=== PATIENT | female | born 1960 | race Caucasian/White ===

== ENCOUNTER → 2017-09-20 | Outpatient (CLI) | payer OTHER ==
[~2017-09-20] VITALS: Ht 152.4 cm; Wt 122.5 kg
[~2017-09-20] MED LIST: ACTOS 30 MG TAB30 MG PO; ACTOS 45 MG45 M1 PO; ADULT LOW DOSE81 MG PO; ASPIRIN325 PO; BACTRIM DS TAB1 EACH PO; BRILINTA90 MG PO; CALCIUM 500 +1 EAC5 PO; CARVEDILOL12.5 MG PO; CRESTOR40 MG PO; FLEXERIL PO; FUROSEMIDE 40 M40 M1 PO; HYDROCODONE-ACE15 ML PO; HYDROCODONE-AP1 EA11 PO; HYDROCODONE-AP1 EA12 PO; HYDROCODONE-APA1 TA1 PO; IMDUR; LANTUS SQ; LASIX 80 MG TAB80 MG PO; LISINOPRIL10 MG PO; MEDROLDOSEPACK PO; MS CONTIN15 MG PO; MULTIVITAMINS1 EAC7 PO; NITROGLYCERIN0.4 MG SUBLING; NITROQUICK0.3 MG SL; NOVOLOG100 UNIT/1 SQ; PEPCID20 MG PO; PERCOCET 5-3251 EACH PO; PLAVIX 75 MG TA75 MG PO; SKELAXIN 800 M800 MG PO; SYMBICORT160 MCG/4. INH; VENTOLIN HFA 1818 GM INH; VENTOLIN17 GM; VITAMIN B-12500 MCG PO; VITAMIN D35000 UNIT PO; ZETIA10 MG PO; ZOFRAN 4 MG ORAL4 M1 DIS; ZOFRAN ODT4 MG DISSOLVE
--- NOTE | ~2017-09-20 | HPC ---
[facility] [place] [address] PAIN MANAGEMENT CONSULTATION Name: RONALDJENNIFER J Room #: REG SUMMER Borges#: [id number] Admission: 09/20/17 Attend Phys: Galen Jaffe MD Discharge: Date of : 56 Report #: [id number] THIS REPORT FOR: //name// CC: MELISSA Jaffe DATE OF SERVICE: 09/20/2017 CHIEF COMPLAINT: Right hip and back pain. FOLLOWUP HISTORY OF PRESENT ILLNESS: The patient is a 57-year-old female who has been referred to the pain clinic for evaluation. She has been having pain and discomfort since 1994. At this juncture, she is experiencing pain, which she describes as sharp in her lower back with cramping sensation down into her legs. She also has some arm pain. There is pain in her ankles, knees, hips and she rates them an 8/10 on most days. Notes that her pain is worse when she is walking, standing, bending and going up and down stairs. She describes it as constant, steady, cramping, crushing and sharp. She has a complex medical history. She has a history of coronary artery disease. The patient has come to the pain clinic for evaluation and possible treatment of uncontrolled pain. PAST MEDICAL HISTORY: 1. Myocardial infarct, cardiac stents x 4 2008 and 2010. 2. Insulin-dependent diabetes mellitus. 3. Hypertension. 4. Hypercholesterolemia. 5. Heart palpitations. 6. Chronic low back pain. 7. Chronic obstructive pulmonary disease. 8. Asthma. 9. Sleep apnea, uses CPAP, oxygen at 2 liters at home. 10. History of GERD. 11. Restless leg syndrome. 12. Arthritis. MEDICATIONS: MS Contin 15 mg p.r.n., insulin 20 units subcutaneous with meals, Crestor 40 mg daily, Zestril 10 mg b.i.d., Coreg 12.5 mg daily, Zetia 10 mg daily, Plavix 75 mg daily, aspirin 81 mg, insulin 100 units q. evening, Flexeril 10 mg t.i.d., Lasix 80 mg b.i.d., Actos 45 mg, vitamin D3, multivitamins, Symbicort 160/4.5, albuterol 2 puffs q. 4 hours p.r.n. wheezing, nitroglycerin 0.4 mg sublingual. ALLERGIES: SWAPNIL. [facility] [address] [place] [address] PAIN MANAGEMENT CONSULTATION Name: JENNIFER CARDENAS Room #: REG CLI [facility]#: [id number] Admission: 09/20/17 Attend Phys: Galen Jaffe MD Discharge: Date of : 56 Report #: [id number] SOCIAL HISTORY: Disabled since 2000. PAST SURGICAL HISTORY: section 1983, hysterectomy in 1993 or 1994, cholecystectomy in 1994, carpal tunnel, bilateral, 1997, and four stents placed in the heart in 2000, 2003, 2008 and 2010, and had the left sleeve done in 07/2016 to decrease weight. REVIEW OF SYSTEMS: A 14-point review of systems questionnaire indicates weight change, decreased appetite, weakness, wears glasses, shortness of breath, heart trouble, angina, palpitation history, shortness of breath lying flat, lightheadedness, dizziness. LABORATORY DATA: No new lab values were available at the time of interview. PHYSICAL EXAMINATION: VITAL SIGNS: Blood pressure 142/61, pulse 56, respiratory rate 20, room air saturation 97%. Height 5 feet 0 inches, weight 270 pounds, BMI is 52. The patient has morbid obesity. She complains of pain and discomfort in somewhat of a global fashion involving her shoulders, back, forearms, hips, thighs and calves, knees, feet and ankles. Abdomen is protuberant, complains of pain and discomfort in the aforementioned areas. ASSESSMENT: 1. Chronic pain. 2. History of myocardial infarct. 3. Cardiac stents x 4. 4. Insulin-dependent diabetes mellitus. 5. Hypertension. 6. Hypercholesterolemia. 7. Chronic obstructive pulmonary disease. 8. Asthma. 9. Sleep apnea with use of oxygen. 10. History of gastroesophageal reflux disease. 11. Arthritis. 12. Restless leg syndrome. RECOMMENDATIONS: We had a long discussion with the patient. We have spoken with her for over 30 minutes. Given that she has such a multitude of problems and takes numerous medications, which are all a number of more centrally acting, I am not sure that opioid medications are going to be a long-term solution to her problem. We may consider use of non-central acting agents. Would consider use of gabapentin. The patient may return to the pain clinic in the future for possible use or trial of this medication. [address] [address] PAIN MANAGEMENT CONSULTATION Name: JENNIFER CARDENAS Room #: REG SUMMER Borges#: [id number] Admission: 09/20/17 Attend Phys: Galen Jaffe MD Discharge: Date of : 56 Report #: [id number] We would like to thank you for letting us participate in her care. We hope she continues to improve. <ELECTRONICALLY SIGNED> By: Galen Jaffe MD 10/18/17 [id number] Galen Jaffe MD /[facility]
[2017-09-20 10:44] VITALS: BP 147/61
== END ==
LOC: PAIN 06:49
DX: G89.29 Other chronic pain (principal); M25.551 Pain in right hip; M54.89 Other dorsalgia; I25.2 Old myocardial infarction; I10 Essential (primary) hypertension; E78.00 Pure hypercholesterolemia, unspecified; J44.9 Chronic obstructive pulmonary disease, unspecified; G47.33 Obstructive sleep apnea (adult) (pediatric); G25.81 Restless legs syndrome; Z87.19 Personal history of other diseases of the digestive system; E13.69 Other specified diabetes mellitus with other specified complication; M19.91 Primary osteoarthritis, unspecified site; Z90.710 Acquired absence of both cervix and uterus; Z98.890 Other specified postprocedural states; Z95.5 Presence of coronary angioplasty implant and graft

== ENCOUNTER 2018-04-13 10:31 | Emergency (ER) | payer OTHER ==
[~2018-04-13] VITALS: Ht 152.4 cm; Wt 122.5 kg
[~2018-04-13 10:31] MED LIST changes: -BRILINTA90 MG PO; -MEDROLDOSEPACK PO; -PEPCID20 MG PO; -SKELAXIN 800 M800 MG PO
[2018-04-13] MEDS ORDERED: SKELAXIN 800 M800 MG PO (10:47)
[2018-04-13] MEDS ORDERED: NITROGLYCERIN0.4 MG SUBLING (10:48)
[2018-04-13] MEDS ORDERED: BRILINTA90 MG PO (10:48)
[2018-04-13] MEDS ORDERED: MEDROLDOSEPACK PO (11:09)
[2018-04-13] MEDS ORDERED: PEPCID20 MG PO (11:09)
== END 2018-04-13 11:49 | disposition home or self-care (01) ==
LOC: ER 10:31
DX: T78.1XXA Other adverse food reactions, not elsewhere classified, initial encounter (principal); H01.003 Unspecified blepharitis right eye, unspecified eyelid; X58.XXXA Exposure to other specified factors, initial encounter; Z95.811 Presence of heart assist device; Z90.710 Acquired absence of both cervix and uterus; Z88.5 Allergy status to narcotic agent; Z88.8 Allergy status to other drugs, medicaments and biological substances

== ENCOUNTER → 2019-01-28 | Outpatient (CLI) | payer OTHER ==
[~2019-01-28] MED LIST changes: +BRILINTA90 MG PO; +MEDROLDOSEPACK PO; +PEPCID20 MG PO; +SKELAXIN 800 M800 MG PO
== END ==
LOC: RAD 11:59
DX: Z12.31 Encounter for screening mammogram for malignant neoplasm of breast (principal)

== ENCOUNTER → 2020-03-28 | Outpatient (CLI) | payer OTHER | LOC: RAD 10:19 | PROVIDERS: ATTEND Family Medicine | DX: Z12.31 Encounter for screening mammogram for malignant neoplasm of breast (principal) ==